=== PATIENT | female | born 1965 | race Caucasian/White ===

== ENCOUNTER 2023-09-13 15:10 | Emergency (ER) | payer OTHER, SELFPAY ==
[2023-09-13 15:13] VITALS: BP 135/87; BMI 21.6
--- NOTE | 2023-09-13 17:31 | ED.GENMED ---
History of Present Illness
<Vikki Cuba PA-C - Last Filed: 09/14/23 07:22>
General
Chief Complaint: Eye Problems
Source: patient
Exam Limitations: none
Time Seen by Provider: 09/13/23 15:46
Nursing documentation reviewed up to this point in time: agreed with
Travel History
Have you had any contact with someone who has COVID-19?: No
Do you have any symptoms of coronavirus? Fever > 100 degrees, chills, cough, shortness of breath, sore throat, loss of taste or smell, muscle aches, or headache?: No
History of Present Illness
History of Present Illness:
58 y/o F with h/o GERD
+ smoker
here with feeling' not well.'
pt says she feels spacy and 'off.'
she notice dpainless R eye redness yesterday when she woke up
she doesn't recall injury, coughing, sneezing, straining etc
she was feeling normal and herself at the time. then today around 11 am someone pointed out that she had another bloodshot left eye. but it wasn't until after that that she felt spacy and not right. she feels like she could be coming down with
something. she also has a frontal headache and doesn't usually get headaches. + feels flushed/chills
denies sore throat, cough, focal weakness, vision changes (uses glasses and feles no difficulty with vision), photophobia, chest pain, shortness of breath, abdominal pain, vomiting, diarrhea.
Past History
<Vikki Cuba PA-C - Last Filed: 09/14/23 07:22>
Past History
ED Past Medical History: None
ED Past Surgical History: , Orthopedic and Tonsilectomy
Social History
Tobacco: Non-smoker
Alcohol: None
Personal:
Living: with family
Employment: Employed
Review of Systems
<Vikki Cuba PA-C - Last Filed: 09/14/23 07:22>
Review of Systems
Allergies reviewed?: Yes
All Other Systems: Not applicable
Phy Exam
<Vikki Cuba PA-C - Last Filed: 09/14/23 07:22>
Physical Exam
Physical Exam:
GENERAL: Alert , in no apparent distress
head: ncat
EYE: pupils equal and reactive
subconjunctival hemorrhage moderate lower right eye, trace L lateral eye
no hyphema
eoms intact
NECK: Supple
ENT: b/l TM s clear, pharynx erythematous but no tonsillar hypertrophy or exudates
CARDIAC: Regular rate and rhythm, no edema
LUNGS: Clear breath sounds bilaterally, no acute respiratory distress, no wheezes/rales/rhonchi, occ cough
ABDOMEN: Soft, without focal tenderness, no r/g, no cvat, normal bowel sounds
NEUROLOGICAL: Alert and oriented, no focal neuro deficits, cn intact, 5/5 strength, sensation intact
SKIN: Warm and dry, skin intact.
MUSCULOSKELETAL: No edema, well perfused.
PSYCH: Normal and appropriate interaction.
Course
<Vikki Cuba PA-C - Last Filed: 09/14/23 07:22>
Orders/Labs/Results
Orders:
Orders
09/13/23 16:16
CT Head W/o Iv Contrast Urgent
Comment:
Reason For Exam: headache
Ketorolac [Toradol] 15 mg IV NOW STA
09/13/23 16:17
0.9% Sodium Chloride 1000 ml [Nss] 1,000 ml IV BOLUS
09/13/23 17:29
COVID-19 Antigen Urgent
Source: Nasal Swab
Complete Blood Count/With Diff Urgent
Comprehensive Metabolic Panel Urgent
Influenza A+B Rapid Molecular Urgent
[facility] Source: Nasal Swab
Specimen Description:
Abnormal Lab Results
09/13/23
17:29
MCH 31.5 H pg
(27.0-31.0)
MPV 11.7 H fL
(7.4-10.4)
BUN 19 H mg/dl
(7-17)
09/13/23 17:29
09/13/23 17:29
Vital Signs
Initial and Last Documented VS:
Initial Vital Signs
Temp Pulse Resp BP Pulse Ox
98.2 F 81 16 135/87 98
09/13/23 15:13 09/13/23 15:13 09/13/23 15:13 09/13/23 15:13 09/13/23 15:13
Last Documented Vital Signs
Temp Pulse Resp BP Pulse Ox
98.2 F 78 19 128/76 97
09/13/23 15:13 09/13/23 19:05 09/13/23 19:05 09/13/23 19:05 09/13/23 19:05
<ROME Arceo - Last Filed: 09/13/23 18:41>
Orders/Labs/Results
Orders:
Orders
09/13/23 16:16
CT Head W/o Iv Contrast Urgent
Comment:
Reason For Exam: headache
Ketorolac [Toradol] 15 mg IV NOW STA
09/13/23 16:17
0.9% Sodium Chloride 1000 ml [Nss] 1,000 ml IV BOLUS
09/13/23 17:29
COVID-19 Antigen Urgent
Source: Nasal Swab
Complete Blood Count/With Diff Urgent
Comprehensive Metabolic Panel Urgent
Influenza A+B Rapid Molecular Urgent
[facility] Source: Nasal Swab
Specimen Description:
Abnormal Lab Results
09/13/23
17:29
MCH 31.5 H pg
(27.0-31.0)
MPV 11.7 H fL
(7.4-10.4)
BUN 19 H mg/dl
(7-17)
09/13/23 17:29
09/13/23 17:29
Very slight Dehydration , COVID negative, Influenza negative.
Vital Signs
Initial and Last Documented VS:
Initial Vital Signs
Temp Pulse Resp BP Pulse Ox
98.2 F 81 16 135/87 98
09/13/23 15:13 09/13/23 15:13 09/13/23 15:13 09/13/23 15:13 09/13/23 15:13
Last Documented Vital Signs
Temp Pulse Resp BP Pulse Ox
98.2 F 78 19 128/76 97
09/13/23 15:13 09/13/23 19:05 09/13/23 19:05 09/13/23 19:05 09/13/23 19:05
<Vikki Cuba PA-C - Last Filed: 09/14/23 07:22>
MDM/Problems Addressed
Differential Diagnosis Includes:
uri, subconjunctival hemorrhage, headache, straiing
MDM/Problems Addressed:
58 Y/O F with h/o gerd
here with spontaneous eye redness yesterday and today
no pain no vision changes
cnanot think of any reasons to have it
today she started feeling not well, run down, like she is coming down with something and has a headache
sh eis not anticoagulated
on exa mpt is sleeping but easily aroused
neuro intact
small left and moderatre R subconjunctival hemorrhage
lungs clear
denies trauma, no drug or alcohol use
plan is to check labs and treat her headache
and eval for causes of feleing run down - covid, flu
noncon head ct because pt has no h/o HAs and she has a headache
regarding the subconjunctival hemorrhage, this is not concerning; - if yolanda did not have other symptoms, i felt comfortable discharging her home but because of the fatigue and headache, will eval with labs and ct.
signed out to elian [facility].
<ROME Arceo - Last Filed: 09/13/23 18:41>
*Critical Care Note
Total Time (30-74mins, 75-104mins- exclusive of procedures): Not Applicable
ED Attending Note
<Vikki Cuba PA-C - Last Filed: 09/14/23 07:22>
-
Portions of this chart may have been created with voice recognition software.� Occasional wrong word or��sound alike� substitutions may have occurred due to the inherent limitations of voice recognition software.
Discharge Plan
Departure
Patient Disposition: Home (Routine Discharge)
Date of Disposition: 09/13/23
Time of Disposition: 18:37
Patient with high blood pressure during this ER visit?: Yes
Condition: Good
Covid-19: Negative COVID-19
Discharge Problem:
CHANEL (subconjunctival hemorrhage), Fatigue, Headache, Viral syndrome
Instructions: Viral Syndrome (DC), Subconjunctival Hemorrhage
Prescriptions:
No Action
bupropion HCl 150 MG tablet sustained-release 12 hr
150 mg PO BID
acetaminophen 325 MG tablet
650 mg PO Q4HWA 0RF
doxycycline hyclate 100 MG capsule
100 mg PO Q12 Qty: 14 0RF
Referrals:
UNKNOWN - PT DOES,NOT KNOW [Family Provider] -
Interventions
Interventions:
*Risk Screen - Suicide Last Done: 09/13/23 15:13
*General Assessment Last Done: 09/13/23 19:05
*Neglect/Abuse Screening Last Done: 09/13/23 15:13
ED- Fall Risk Assessment Last Done: 09/13/23 16:30
*ED COVID-19 Vaccine History Last Done: 09/13/23 15:13
*Nursing Disposition Last Done: 09/13/23 19:05
Discharge Date and Time
Discharge Date/Time: 09/13/23 19:05
[2023-09-13] MEDS: TORADOL 15 MG IV (17:42)
[2023-09-13] MEDS: NSS 1000 IV (17:43)
[2023-09-13 17:55] LABS: % Basophils 0.7 % (0-2); % Eosinophils 1.5 % (0-6); % Immature Granulocytes 0.1 % (0-0.5); % Lymphocytes 31.8 % (20.5-51.1); % Monocytes 6.7 % (1.7-9.3); % Neutrophils 59.2 % (42.2-75.2); Absolute Basophils 0.1 10^3/uL (0-0.2); Absolute Eosinophils 0.1 10^3/uL (0-0.7); Absolute Lymphocytes 2.2 10^3/uL (1.2-3.4); Absolute Monocytes 0.5 10^3/uL (0.1-0.6); Hematocrit 38.7 % (37.0-47.0); Hemoglobin 13.5 g/dL (12.0-16.0); Mean Corp Hgb Conc. 34.9 g/dL (33.0-37.0); Mean Corpuscular Hgb 31.5 pg (27.0-31.0); Mean Corpuscular Volume 90.4 fL (81.0-99.0); Mean Platelet Volume 11.7 fL (7.4-10.4); Nucleated Red Blood Cells % 0 %; Platelet Count 259 10^3/uL (130-400); Red Blood Cell Count 4.28 10^6/uL (4.20-5.40); Red Cell Dist. Width 12.6 % (11.5-14.5); White Blood Cell Count 6.8 10^3/uL (4.8-10.8)
[2023-09-13 18:07] LABS: ALT (SGPT) 20 U/L (0-35); AST (SGOT) 30 U/L (14-36); Albumin 4.8 g/dl (3.5-5.0); Alkaline Phosphatase 64 U/L (38-126); Blood Urea Nitrogen 19 mg/dl (7-17); Carbon Dioxide 25 mmol/L (22-30); Chloride 105 mmol/L (98-107); Estimated Creatinine Clearance 98 ml/min; Glucose 94 mg/dl (70-99); Potassium 4.2 mmol/L (3.5-5.1); Sodium 139 mmol/L (135-145); Total Bilirubin 0.6 mg/dl (0.2-1.3); Total Protein 7.3 g/dl (6.3-8.2); eGFR > 60.00
[2023-09-13 18:15] LABS: COVID-19 Antigen Negative (Negative)
[2023-09-13 19:02] VITALS: BP 128/76
[2023-09-13 19:05] VITALS: BP 128/76
== END 2023-09-13 19:05 | disposition home or self-care (01) ==
LOC: EMR 15:10
PROVIDERS: Physician Assistant; EMERGENCY PHYSICIAN Emergency Medicine
DX: H11.31 Conjunctival hemorrhage, right eye (principal); B34.9 Viral infection, unspecified; R51.9 Headache, unspecified; R03.0 Elevated blood-pressure reading, without diagnosis of hypertension; R53.83 Other fatigue; K21.9 Gastro-esophageal reflux disease without esophagitis; Z11.52 Encounter for screening for COVID-19
CPT/HCPCS: 99284; 96374; 96361; 70450; 80053; 85025; 87502; 87811